=== PATIENT | female | born 2005 | race Caucasian/White ===

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

== ENCOUNTER 2023-04-26 17:58 | Emergency (ER) | payer BC ==
--- NOTE | 2023-04-26 18:12 | ERPHSYRPT ---
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 She reports that they were doing test on their own blood and she found her hematocrit to be 64. She is concerned obviously about that abnormality. She denies any shortness of breath she denies any obvious thrombosis and no abnormal bleeding or bruising. A CBC was done in June of this year and was normal including the platelet count. Timing/Duration: today Allergies/Adverse Reactions: Sulfa (Sulfonamide Antibiotics) Allergy (Intermediate, Verified 04/26/23 18:19) Swelling of Face Home Medications: No Reportable Medications [No Reported Medications] 04/26/23 [History] Hx Tetanus, Diphtheria Vaccination/Date Given: No Hx Influenza Vaccination/Date Given: No Hx Pneumococcal Vaccination/Date Given: No - Review of Systems Constitutional: No Fever, No Chills Eyes: No Symptoms Ears, Nose, & Throat: No Symptoms Respiratory: No Cough, No Dyspnea Cardiac: No Chest Pain, No Edema, No Syncope Abdominal/Gastrointestinal: No Abdominal Pain, No Nausea, No Vomiting, No Diarrhea Genitourinary Symptoms: No Dysuria Musculoskeletal: No Back Pain, No Neck Pain Skin: No Rash Neurological: No Dizziness, No Focal Weakness, No Sensory Changes Psychological: No Symptoms Endocrine: No Symptoms Hematologic/Lymphatic: No Anemia, No Blood Clots, No Easy Bleeding, No Gum Bleeding, No Easy Bruising, No Adenopathy All Other Systems: Reviewed and Negative - Past Medical History Pertinent Past Medical History: Yes Neurological History: No Pertinent History ENT History: No Pertinent History Cardiac History: No Pertinent History Respiratory History: Asthma Endocrine Medical History: No Pertinent History Musculoskeletal History: No Pertinent History GI Medical History: No Pertinent History History: No Pertinent History Psycho-Social History: No Pertinent History Female Reproductive Disorders: No Pertinent History - Past Surgical History Past Surgical History: No Neuro Surgical History: No Pertinent History Cardiac: No Pertinent History Respiratory: No Pertinent History Gastrointestinal: No Pertinent History Genitourinary: No Pertinent History Musculoskeletal: No Pertinent History Female Surgical History: No Pertinent History - Social History Smoking Status: Never smoker Exposure to second hand smoke: No Alcohol Use: None Drug Use: none Patient Lives Alone: No - Nursing Vital Signs Nursing Vital Signs: Initial Vital Signs Temperature 97.9 F 04/26/23 18:03 Pulse Rate 63 04/26/23 18:03 Respiratory Rate 18 04/26/23 18:03 Blood Pressure 110/64 04/26/23 18:03 O2 Sat by Pulse Oximetry 100 04/26/23 18:03 Pain Scale Pain Intensity 0 - Physical Exam General Appearance: no apparent distress, alert Eye Exam: PERRL/EOMI, eyes nml inspection Ears, Nose, Throat Exam: normal ENT inspection, TMs normal, pharynx normal, moist mucous membranes Neck Exam: normal inspection, non-tender, supple, full range of motion Respiratory Exam: normal breath sounds, lungs clear, No respiratory distress Cardiovascular Exam: regular rate/rhythm, normal heart sounds, normal peripheral pulses Gastrointestinal/Abdomen Exam: soft, normal bowel sounds, No tenderness, No mass Back Exam: normal inspection, normal range of motion, No CVA tenderness, No vertebral tenderness Extremity Exam: normal inspection, normal range of motion, pelvis stable Neurologic Exam: alert, oriented x 3, cooperative, normal mood/affect, nml cerebellar function, nml station & gait, sensation nml, No motor deficits Skin Exam: normal color, warm, dry, No rash Lymphatic Exam: No adenopathy SpO2 Interpretation: normal SpO2: 100 O2 Delivery: Room Air - Course Nursing assessment & vital signs reviewed: Yes Ordered Tests: Active Orders 24 hr Category Date Time Status CBC W DIFF Stat Lab 04/26/23 18:07 Ordered Lab/Rad Data: Laboratory Result Diagrams 04/26/23 18:15 Laboratory Results 04/26/23 Range/Units 18:15 WBC 7.3 (4.0-10.5) x10^3/uL RBC 4.49 (4.1-5.4) x10^6/uL Hgb 13.6 (12.0-16.0) g/dL Hct 40.7 (35-47) % MCV 90.6 (78-100) fL MCH 30.3 (26-32) pg MCHC 33.4 (32-36) g/dL RDW 11.5 (11.5-14.0) % Plt Count 218 (150-450) x10^3/uL MPV 9.8 (7.5-11.0) fL Gran % 69.8 H (36.0-66.0) % Immature Gran % (Auto) 0.1 (0.00-0.4) % Nucleat RBC Rel Count 0.0 (0.00-0.1) % Eos # (Auto) 0.09 (0-0.5) x10^3/uL Immature Gran # (Auto) 0.01 (0.00-0.03) x10^3u/L Absolute Lymphs (auto) 1.67 (1.0-4.6) x10^3/uL Absolute Monos (auto) 0.42 (0.0-1.3) x10^3/uL Absolute Nucleated RBC 0.00 (0.00-0.01) x10^3u/L Lymphocytes % 22.8 L (24.0-44.0) % Monocytes % 5.7 (0.0-12.0) % Eosinophils % 1.2 (0.00-5.0) % Basophils % 0.4 (0.0-0.4) % Absolute Granulocytes 5.12 (1.4-6.9) x10^3/uL Basophils # 0.03 (0-0.4) x10^3/uL - Progress Progress: improved Medical Desision Making - Independent Historian Additional History obtained from: Mother - Diagnostic Testing Diagnostic test were ordered, analyzed, and reviewed by me: Yes - Risk of complications Minimal Risk: Minimal risk of morbidity - Departure Departure Disposition: Home Clinical Impression: Encounter for wellness examination Condition: Stable Critical Care Time: No Referrals: ANUSHKA HARRIS [Primary Care Provider] - Follow up/PCP as directed
[2023-04-26 18:19] LABS: Absolute Neutrophil Ct (ANC) 5.12 x10^3/uL (1.4-6.9); BASOPHIL % 0.4 % (0.0-0.4); Basophil (Absolute #) 0.03 x10^3/uL (0-0.4); Eosinophil % 1.2 % (0.00-5.0); Eosinophil (Absolute #) 0.09 x10^3/uL (0-0.5); Hematocrit 40.7 % (35-47); Hemoglobin 13.6 g/dL (12.0-16.0); IMMATURE GRAN # 0.01 x10^3u/L (0.00-0.03); IMMATURE GRAN % 0.1 % (0.00-0.4); Lymphocyte (Absolute #) 1.67 x10^3/uL (1.0-4.6); Lymphocytes % 22.8 % (24.0-44.0); Mean Cell Volume 90.6 fL (78-100); Mean Corpuscular Hemoglobin 30.3 pg (26-32); Mean Corpuscular Hgb Concent. 33.4 g/dL (32-36); Mean Platelet Volume 9.8 fL (7.5-11.0); Monocyte (Absolute #) 0.42 x10^3/uL (0.0-1.3); Monocytes % 5.7 % (0.0-12.0); Neutrophil % 69.8 % (36.0-66.0); Platelet Count 218 x10^3/uL (150-450); Red Blood Count 4.49 x10^6/uL (4.1-5.4); Red Cell Distribution Width 11.5 % (11.5-14.0); White Blood Count 7.3 x10^3/uL (4.0-10.5)
[2023-04-26 18:20] VITALS: BP 110/64; RESP 18; TEMP 97.9
[2023-04-26 18:43] VITALS: PULSE 76; O2SAT 96
== END 2023-04-26 18:43 | disposition home or self-care (01) ==
LOC: ED 17:58
DX: Z71.1 Person with feared health complaint in whom no diagnosis is made (principal)
CPT/HCPCS: 36415; 85025; 99282

== ENCOUNTER 2023-06-12 00:05 | Emergency (ER) | payer BC ==
[2023-06-12 00:25] VITALS: RESP 18; TEMP 100; O2SAT 99
[2023-06-12 01:04] LABS: Group A Strep NOT DETECTED (NEGATIVE)
[2023-06-12 01:07] VITALS: BP 103/60; PULSE 92
[2023-06-12 01:15] LABS: INFLUENZA A NEGATIVE (NEGATIVE); INFLUENZA B NEGATIVE (NEGATIVE); RESPIRATORY SYNCTIAL VIRUS NEGATIVE (NEGATIVE); SARS-CoV-2 Xpert Express NEGATIVE (NEGATIVE)
--- NOTE | 2023-06-12 02:19 | ERPHSYRPT ---
- History of Present Illness Source: patient, family Exam Limitations: no limitations Patient Subjective Stated Complaint: fever, cough, sore throat onset this am Triage Nursing Assessment: pt to ED with father c/o fever, cough, and sore throat that began this morning. states tickling feeling in throat, denies pain at this time. reports fever of 100.9 at home, had taken tylenol at 2200 with temperature improved on arrival to ED. lung sounds clear and equal, heart sounds clear, denies SOB and work of breathing not labored. father states he was dx RSV + last week and that pt is having similar symptoms to his. Physician History: 18 years old female with past medical history of asthma, presenting to the emergency room accompanied by her father with a ief complaint of fever, cough sore throat and right posterior chest pain. The patient states that her symptoms started today. Currently she is on cefdinir antibiotics for bilateral ear infections. She is on day 6 for the antibiotics. She took Tylenol for the above symptoms her fever broke down and her chest pain on the right side was completely resolved. She denies shortness of breath she is saturating 97% on room air. Allergies/Adverse Reactions: Sulfa (Sulfonamide Antibiotics) Allergy (Intermediate, Verified 06/12/23 00:24) Swelling of Face Home Medications: No Reportable Medications [No Reported Medications] 04/26/23 [History] Hx Tetanus, Diphtheria Vaccination/Date Given: Yes Hx Influenza Vaccination/Date Given: No Hx Pneumococcal Vaccination/Date Given: No Travel Risk - International Travel Have you traveled outside of the country in past 3 weeks: No - Coronavirus Screening Are you exhibiting any of the following symptoms?: Yes Symptoms: Fever, Cough: New Onset Close contact with a COVID-19 positive Pt in past 14-21 Days: No - Vaccine Status Have you recieved a Covid-19 vaccination: Yes Sprinkler Installer: [employer] - Vaccination Dates Date of 2cond Vaccination (if applicable): did not recieve second dose - Review of Systems Constitutional: Fever Eyes: No Symptoms Ears, Nose, & Throat: No Symptoms, Throat Pain Respiratory: Cough Cardiac: No Chest Pain, No Edema, No Syncope Abdominal/Gastrointestinal: No Abdominal Pain, No Nausea, No Vomiting, No Diarrhea Genitourinary Symptoms: No Dysuria Musculoskeletal: No Back Pain, No Neck Pain Skin: No Rash Neurological: No Dizziness, No Focal Weakness, No Sensory Changes Psychological: No Symptoms Endocrine: No Symptoms All Other Systems: Reviewed and Negative - Past Medical History Pertinent Past Medical History: Yes Neurological History: No Pertinent History ENT History: No Pertinent History Cardiac History: No Pertinent History Respiratory History: Asthma Endocrine Medical History: No Pertinent History Musculoskeletal History: No Pertinent History GI Medical History: No Pertinent History History: No Pertinent History Psycho-Social History: No Pertinent History Female Reproductive Disorders: No Pertinent History - Past Surgical History Past Surgical History: No Neuro Surgical History: No Pertinent History Cardiac: No Pertinent History Respiratory: No Pertinent History Gastrointestinal: No Pertinent History Genitourinary: No Pertinent History Musculoskeletal: No Pertinent History Female Surgical History: No Pertinent History - Social History Smoking Status: Never smoker Exposure to second hand smoke: No Alcohol Use: None Drug Use: none Patient Lives Alone: No - Female History Hx Last Menstrual Period: last month Hx Now: No (denies sexual activity) - Nursing Vital Signs Nursing Vital Signs: Initial Vital Signs Temperature 100 F 06/12/23 00:19 Pulse Rate 106 H 06/12/23 00:19 Respiratory Rate 18 06/12/23 00:19 Blood Pressure 132/66 06/12/23 00:19 O2 Sat by Pulse Oximetry 99 06/12/23 00:19 Pain Scale Pain Intensity 0 - Physical Exam General Appearance: no apparent distress, alert Eye Exam: PERRL/EOMI, eyes nml inspection Ears, Nose, Throat Exam: normal ENT inspection, TMs normal, pharynx normal, moist mucous membranes, pharyngeal erythema Neck Exam: normal inspection, non-tender, supple, full range of motion Respiratory Exam: normal breath sounds, lungs clear, airway intact, No respiratory distress, No diminished breath sounds, No prolonged expirations, No crackles/rales, No wheezing Cardiovascular Exam: regular rate/rhythm, normal heart sounds, capillary refill <2 sec Gastrointestinal/Abdomen Exam: soft, No tenderness Back Exam: normal inspection, No CVA tenderness, No vertebral tenderness Extremity Exam: normal inspection, normal range of motion Neurologic Exam: alert, oriented x 3, cooperative, normal mood/affect, sensation nml, No motor deficits Skin Exam: normal color, warm, dry, No rash Lymphatic Exam: No adenopathy SpO2: 99 Lab/Rad Data: Laboratory Results 06/12/23 Range/Units 00:36 Influenza Type A Ag NEGATIVE (NEGATIVE) Influenza Type B Ag NEGATIVE (NEGATIVE) RSV (PCR) NEGATIVE (NEGATIVE) SARS-CoV-2 (PCR) NEGATIVE (NEGATIVE) Group A Strep Antibody NOT DETECTED (NEGATIVE) - Progress Progress: unchanged Progress Note: years old female with past medical history of asthma, recently diagnosed with bilateral otitis media currently on cefdinir antibiotics day 6. The patient is presenting to the emergency room accompanied by her father complaining of fever, coughing and some right posterior chest pain that started after a coughing spell. The symptoms started today. She has been taking Tylenol for the above symptoms, currently her right posterior chest pain is completely resolved. Her saturation 97% on room air. Her physical is benign, within normal limits. Emergency room course and medical decision making: Will check for COVID-19 antigen, RSV, rapid strep. Influenza A/B. The above are negative, the patient is reassured. She will be discharged home. Rest increase fluid intake. Alternate Tylenol ibuprofen as needed for any worsening symptoms Continue cefdinir antibiotics till finished. - Departure Departure Disposition: Home Clinical Impression: Fever, Acute bronchitis, Sore throat Condition: Stable Critical Care Time: No Referrals: ANUSHKA HARRIS [Primary Care Provider] - Follow up/PCP as directed Instructions: Cough, Adult (DC) Additional Instructions: Rest, increase fluid intake. Alternate Tylenol ibuprofen as needed for fever and or chest pain. Continue cefdinir antibiotics twice a day till finished. Use your inhaler as needed for shortness of breath. Follow-up with family physician in 2 to 3 days. Follow-up as needed for any worsening symptoms or
== END 2023-06-12 02:30 | disposition home or self-care (01) ==
LOC: ED 00:05
DX: J20.9 Acute bronchitis, unspecified (principal); R50.9 Fever, unspecified; J02.9 Acute pharyngitis, unspecified; R05.1 Acute cough; R07.9 Chest pain, unspecified; Z28.311 Partially vaccinated for COVID-19
CPT/HCPCS: 0241U; 87651; 99282

== ENCOUNTER 2023-06-17 20:15 | Emergency (ER) | payer BC ==
[2023-06-17 20:22] VITALS: RESP 18; TEMP 97.9; O2SAT 100
--- NOTE | 2023-06-17 20:37 | ERPHSYRPT ---
- History of Present Illness Time Seen by Provider: 06/17/23 20:34 Source: patient Exam Limitations: no limitations Patient Subjective Stated Complaint: Cough, SOB, wheezing Triage Nursing Assessment: 18 yr old female pt arrives to ED via POV with her parents from home. Pt is ambulatory back to room 5. Pt presents with complaints of cough and SOB. pt reports that this is her third visit to hospital but is not feeling any better. Pt as a persistent, productive cough. Pt denies recent fevers. Pt's lungs sound clear and equal bilaterally. pt is alert, oriented and not in distress. Pt's father is at bedside Physician History: Pt presents with complaints of cough and SOB. pt reports that this is her third visit to hospital but is not feeling any better. Pt as a persistent, productive cough.Patient has 3 ER visits. Patient has been diagnosed with influenza A. Timing/Duration: day(s) Cough Quality/Degree: dry cough Associated Symptoms: cough, dizziness, headache, muscle aches, shortness of breath, sore throat, wheezing, No fever Allergies/Adverse Reactions: Sulfa (Sulfonamide Antibiotics) Allergy (Intermediate, Verified 06/17/23 20:22) Swelling of Face Hx Tetanus, Diphtheria Vaccination/Date Given: Yes Hx Influenza Vaccination/Date Given: No Hx Pneumococcal Vaccination/Date Given: No Travel Risk - International Travel Have you traveled outside of the country in past 3 weeks: No - Coronavirus Screening Are you exhibiting any of the following symptoms?: Yes Symptoms: Cough: New Onset, Shortness of Breath Close contact with a COVID-19 positive Pt in past 14-21 Days: No - Vaccine Status Have you recieved a Covid-19 vaccination: Yes [employer]: [employer] - Vaccination Dates Date of 2cond Vaccination (if applicable): did not recieve second dose - Review of Systems Constitutional: Malaise, No Fever, No Chills Eyes: No Symptoms Ears, Nose, & Throat: No Symptoms Respiratory: Cough, Wheezing, No Dyspnea Cardiac: No Chest Pain, No Edema, No Syncope Abdominal/Gastrointestinal: No Abdominal Pain, No Nausea, No Vomiting, No Diarrhea Genitourinary Symptoms: No Dysuria Musculoskeletal: No Back Pain, No Neck Pain Skin: No Rash Neurological: No Dizziness, No Focal Weakness, No Sensory Changes Psychological: No Symptoms Endocrine: No Symptoms All Other Systems: Reviewed and Negative - Past Medical History Pertinent Past Medical History: Yes Neurological History: No Pertinent History ENT History: No Pertinent History Cardiac History: No Pertinent History Respiratory History: Asthma Endocrine Medical History: No Pertinent History Musculoskeletal History: No Pertinent History GI Medical History: No Pertinent History History: No Pertinent History Psycho-Social History: No Pertinent History Female Reproductive Disorders: No Pertinent History - Past Surgical History Past Surgical History: No Neuro Surgical History: No Pertinent History Cardiac: No Pertinent History Respiratory: No Pertinent History Gastrointestinal: No Pertinent History Genitourinary: No Pertinent History Musculoskeletal: No Pertinent History Female Surgical History: No Pertinent History - Social History Smoking Status: Never smoker Exposure to second hand smoke: No Alcohol Use: None Drug Use: none Patient Lives Alone: No - Female History Hx Last Menstrual Period: today Hx Now: No - Nursing Vital Signs Nursing Vital Signs: Initial Vital Signs Temperature 97.9 F 06/17/23 20:16 Pulse Rate 83 06/17/23 20:16 Respiratory Rate 18 06/17/23 20:16 Blood Pressure 117/72 06/17/23 20:16 O2 Sat by Pulse Oximetry 100 06/17/23 20:16 Pain Scale Pain Intensity 0 - Physical Exam General Appearance: no apparent distress, alert Eye Exam: PERRL/EOMI, eyes nml inspection Ears, Nose, Throat Exam: normal ENT inspection, TMs normal, pharynx normal, moist mucous membranes Neck Exam: normal inspection, non-tender, supple, full range of motion Respiratory Exam: normal breath sounds, lungs clear, No respiratory distress Cardiovascular Exam: regular rate/rhythm, normal heart sounds Gastrointestinal/Abdomen Exam: soft, No tenderness Back Exam: normal inspection, No CVA tenderness, No vertebral tenderness Extremity Exam: normal inspection, normal range of motion Neurologic Exam: alert, oriented x 3, cooperative, normal mood/affect, sensation nml, No motor deficits Skin Exam: normal color, warm, dry, No rash Lymphatic Exam: No adenopathy SpO2: 100 - Course Nursing assessment & vital signs reviewed: Yes - Radiology Exams Chest X-ray Interpretation: Reviewed by me, Negative Ordered Tests: Active Orders 24 hr Category Date Time Status CHEST 1 VIEW (PORTABLE) Stat Exams 06/17/23 20:34 Completed Lab/Rad Data: Laboratory Results 06/17/23 06/17/23 Range/Units 20:44 20:25 Influenza Type A Ag POSITIVE (NEGATIVE) Influenza Type B Ag NEGATIVE (NEGATIVE) RSV (PCR) NEGATIVE (NEGATIVE) SARS-CoV-2 (PCR) NEGATIVE (NEGATIVE) Group A Strep Antibody NOT DETECTED (NEGATIVE) - Progress Progress: improved Air Movement: good Blood Culture(s) Obtained: No Antibiotics given: No Counseled pt/family regarding: lab results, diagnosis, need for follow-up, rad results Medical Desision Making - Diagnostic Testing Diagnostic test were ordered, analyzed, and reviewed by me: Yes Radiological Interpretation: Reviewed by me - Risk of complications Minimal Risk: Minimal risk of morbidity - Departure Departure Disposition: Home Clinical Impression: Influenza A Condition: Stable Critical Care Time: No Referrals: ANUSHKA HARRIS [Primary Care Provider] - Follow up/PCP as directed Instructions: Flu, Adult (DC) Additional Instructions: Discharge/Care Plan MELISSA MARQUEZ was seen on 06/17/23 in the Emergency Room. The patient was counseled regarding Diagnosis,Lab results, Imaging studies, need for follow up and when to return to the Emergency Room. Prescriptions given: Discharge Note I have spoken with the patient and/or caregivers. I have explained the patient's condition, diagnosis and treatment plan based on the information available to me at this time. I have answered the patient's and/or caregiver's questions and addressed any concerns. The patient and/or caregivers have as good understanding of the patient's diagnosis, condition and treatment plan as can be expected at this point. The vital signs have been stable. The patient's condition is stable and appropriate for discharge from the emergency department. The patient will pursue further outpatient evaluation with the primary care physician or other designated or consulting physician as outlined in the discharge instructions. The patient and/or caregivers are agreeable to this plan of care and follow-up instructions have been explained in detail. The patient and/or caregivers have received these instruction. The patient/and or caregivers are aware that any significant change in condition or worsening of symptoms should prompt an immediate return to this or the closest emergency department or call 911. MELISSA MARQUEZ was seen on 06/17/23 n the Emergency Room. At that time you were treated for an emergent condition, during your visit Laboratory, Radiology and/or other procedures may have been ordered. It is very important that you follow-up with your Primary Care Physician ANUSHKA HARRIS within the next 24-48 hours to review your Emergency Room visit and the final results of testing that was ordered. Some test results such as Urine Cultures, Blood Cultures, and other cultures if ordered will not be finalized for 24-48 hours. If you do not have a Primary Care Provider please call the medical records department at [phone] to obtain a copy of your results or you may sign into our patient portal to obtain these results by visiting us @ [email or web address] and completing the following steps: 1. Click on the Patient Portal link 2. Click the Patient Self Enrollment Link to complete the enrollment form and entering your 3. Once the enrollment form is completed you will receive an email with a temporary ID and password at the email address you provided. 4. Next choose a user name and password. Your user name must be at least 4 characters long and your password must be at least 4 characters long. 5. Choose a security question from the list and provide your answer to the question. If you already have signed into the Health Portal you may access your Health Care Information 16/01 by the following steps: 1. Login to our website @ [email or web address] 2. Enter your original user name and password. FAQS The [facility] Health Portal is an online tool that contains your Lab Results, Radiology Reports, Visit History, Discharge Instructions and Health Summary Lab and Radiology Results will not be available for 72 hours on the portal. The Portal is a secure site, passwords are encryted and URLs are re-written so they cannot be copied and pasted. You and authorized family members are the only ones who can access your Portal. Also there is a timeout feature that protects your information if you leave the Portal page open. If you have technical difficulty please use the Contact Us link on the page this will allow you to submit any questions you have regarding the Portal or you may contact the Medical Record Department at [phone]. Prescriptions: Oseltamivir 75 mg [Tamiflu 75MG Capsule] 75 mg PO BID #10 cap
--- NOTE | 2023-06-17 20:58 | XRAY ---
Indication: Cough and short of breath. Comparison: October 13, 2011. Portable chest again demonstrates normal heart, lungs, and bony thorax.
[2023-06-17 21:14] LABS: INFLUENZA B NEGATIVE (NEGATIVE); RESPIRATORY SYNCTIAL VIRUS NEGATIVE (NEGATIVE); SARS-CoV-2 Xpert Express NEGATIVE (NEGATIVE)
[2023-06-17 21:31] LABS: INFLUENZA A POSITIVE (NEGATIVE)
[2023-06-17] MEDS ORDERED: Tamiflu 75MG Capsule PO ONE ×2 (21:31→21:39)
[2023-06-17 21:52] VITALS: BP 109/67; PULSE 70
== END 2023-06-17 21:56 | disposition home or self-care (01) ==
LOC: ED 20:15
DX: J10.1 Influenza due to other identified influenza virus with other respiratory manifestations (principal); R05.3 Chronic cough; R06.02 Shortness of breath; Z28.311 Partially vaccinated for COVID-19
CPT/HCPCS: 0241U; 71045; 87651; 99283; A9270-GY